=== PATIENT | female | born 1995 | race Caucasian/White ===

== ENCOUNTER 2016-05-11 12:37 | Emergency (ER) | payer OTHER ==
[~2016-05-11] VITALS: Ht 170.2 cm; Wt 95.3 kg
[~2016-05-11 12:37] MED LIST: PERMETHRIN60 GM TOP
[2016-05-11 13:14] VITALS: BP 128/84
--- NOTE | 2016-05-11 14:43 | ED SKIN/ALLERGY COMPLAINT ---
History of Present Illness General Chief Complaint: General Adult Stated Complaint: CHECKED FOR HEAD LICE Source: patient, old records Exam Limitations: no limitations Vital Signs & Intake/Output Vital Signs & Intake/Output Vital Signs Date Time Temp Pulse Resp B/P Pulse O2 O2 Flow FiO2 Ox Delivery Rate 05/11 1314 97.5 56 16 128/84 96 Room Air Allergies Coded Allergies: NO KNOWN ALLERGIES (10/17/11) Reconcile Medications Permethrin (Lice Treatment) 1 % LIQUID 1 FELICIA TOP ONCE PEDICULOSIS Permethrin 60 GM CREAM..G. 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 The patient states that today she was itching her scalp which has been very itchy since today. She states that her coworkers checked her hair and saw the lice in her hair is well and sent her here for evaluation. She denies any rashes to her skin she has not taken anything for her symptoms no history of similar symptoms in the past or no modifying factors or associated symptoms otherwise. (MARCELO CONWAY,ELIJAH) Past History Travel History Traveled to [place] past 21 day No Medical History Any Pertinent Medical History? 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 No (ELIJAH VILLEGAS) Review of Systems Review of Systems Constitutional: Reports: see HPI. All Other Systems: Reviewed and Negative Comments Review of systems: See HPI, All other systems negative. Constitutional, no chills no fever, no malaise HEENT: no sore throat no congestion, no ear pain Cardiovascular: No chest pain , no palpitation Skin, no jaundice no rashes, no change in skin Respiratory: No dyspnea no cough no sputum GI: No nausea no vomiting, no diarrhea : No dysuria Muscle skeletal: No joint pain, no joint swelling, Neurologic: No numbness no headache Psych: No stress Heme/endocrine: No bruising no bleeding Immunology: No lymphadenopathy (ELIJAH VILLEGAS) Physical Exam Physical Exam General Appearance: well developed/nourished, no apparent distress, alert, awake Comments: Well-developed well-nourished patient in no apparent distress. HEENT: Atraumatic, extraocular motion intact Neck: Supple, FROM Back: FROM Cardiovascular: Regular rate and rhythms no murmurs rubs Respiratory: No respiratory distress. Patient speaking in full complete sentences. Breath sounds clear to auscultation bilaterally: NO W/R/R Extremities: full range of motion Neuro: Alert and oriented x3 Skin: Warm & dry;No appreciable rash on exposed skin Psych: Mood affect normal, normal memory normal judgment. (ELIJAH VILLEGAS) Progress Differential Diagnosis: pediculosis scabies cellulitis tinea Plan of Care: Discussed the patient her physical exam findings prescription for permethrin provided advised close follow-up return anytime sooner with any concerns she feels comfortable plan. (ELIJAH VILLEGAS) Departure Departure Time of Disposition: 1501 Disposition: HOME OR SELF CARE Condition: Stable Clinical Impression Primary Impression: Pediculosis Referrals: PATIENT HAS NO PRIMARY CARE DR (PCP/Family) Additional Instructions: permetherin as directed. wash your clothes bed sheets and towels in hot water. follow up with your pmd with any concerns Departure Forms: Customer Survey General Discharge Information Prescriptions: Current Visit Scripts Permethrin (Lice Treatment) 1 FELICIA TOP ONCE #1 BOT (ELIJAH VILLEGAS) PA/ROOFING APPRENTICE Co-Sign Statement Statement: ED Attending supervision documentation- [] I saw and evaluated the patient. I have also reviewed all the pertinent lab results and diagnostic results. I agree with the findings and the plan of care as documented in the PA's/ROOFING APPRENTICE's documentation. [X] I have reviewed the ED Record and agree with the PA's/ROOFING APPRENTICE's documentation. [] Additions or exceptions (if any) to the PAs/ROOFING APPRENTICE's note and plan are summarized below: [] (DES TRUJILLO DO)
[2016-05-11] MEDS ORDERED: LICE TREATMENT59 ML TOP (15:03)
== END 2016-05-11 15:13 ==
LOC: ERH 12:37
DX: B85.0 Pediculosis due to Pediculus humanus capitis (principal)

== ENCOUNTER 2016-05-25 17:53 | Emergency (ER) | payer OTHER ==
[~2016-05-25] VITALS: Ht 170.2 cm; Wt 95.3 kg
[~2016-05-25 17:53] MED LIST changes: +LICE TREATMENT59 ML TOP
--- NOTE | 2016-05-25 20:28 | ED THROAT/DENTAL COMPLAINT ---
History of Present Illness General Chief Complaint: Sore Throat, Dental Pain Stated Complaint: SORE THROAT Vital Signs & Intake/Output Vital Signs & Intake/Output Vital Signs Date Time Temp Pulse Resp B/P Pulse O2 O2 Flow FiO2 Ox Delivery Rate 05/25 1807 97.8 88 20 138/78 98 Room Air Allergies Coded Allergies: NO KNOWN ALLERGIES (10/17/11) Reconcile Medications Permethrin (Lice Treatment) 1 % LIQUID 1 FELICIA TOP ONCE PEDICULOSIS Permethrin 60 GM CREAM..G. 1 FELICIA TOP ONCE HEAD LICE 1% PRIOR TO APPLICATION WASH HAIR WITH CONDITIONER FREE SHAMPOO RINSE WITH WATER AND TOWEL APPLIED A FISH AMOUNT OF CREAM RINSE TO SATURATE THE HAIR AND SCALP ESPECIALLY BEHIND THE EARS AND NAPE OF THE NECK Garrett hARE NO LONGER THAN 10 MINUTES RINSE OFF WITH WARM WATER REMOVE REMAINING NITS WITH A NIT COMB REPEAT IN 7 DAYS IF NO BETTER Triage Note: PT TO ED C/O SORE THROAT X 3 DAYS. 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
[2016-05-25] MEDS ORDERED: AMOXICILLIN500 M3 PO (20:40)
--- NOTE | 2016-05-25 20:41 | ED THROAT/DENTAL COMPLAINT ---
History of Present Illness General Chief Complaint: Sore Throat, Dental Pain Stated Complaint: SORE THROAT Source: patient Exam Limitations: no limitations Vital Signs & Intake/Output Vital Signs & Intake/Output Vital Signs Date Time Temp Pulse Resp B/P Pulse O2 O2 Flow FiO2 Ox Delivery Rate 05/25 2048 99.7 88 20 106/61 98 Room Air 05/25 1808 97.8 88 20 138/78 98 Room Air ED Intake and Output 05/26 0000 05/25 1200 Intake Total 240 Output Total Balance 240 Intake, Oral 240 Patient 210 lb Weight Allergies Coded Allergies: NO KNOWN ALLERGIES (05/25/16) Reconcile Medications Amoxicillin 500 MG TABLET 1 TAB PO TID strep Triage Note: PT TO ED C/O SORE THROAT X 3 DAYS. Triage Nurses Notes Reviewed? yes Onset: Abrupt Duration: day(s): (FEW), constant, continues in ED Timing: recent history Severity: moderate, severe No Modifying Factors: none : No Patient currently breastfeeds: No HPI: 20-year-old female comes into emergency room for further evaluation of sore throat is been going on for the past 3 days. Difficulty swallowing. Denies any runny nose congestion. Mild cough. Chills. Denies any other associated symptoms at this time. (JERRY HAAS) Past History Travel History Traveled to [place] past 21 day No Medical History Any Pertinent Medical History? 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 No (EJRRY HAAS) Review of Systems Review of Systems Constitutional: Reports: see HPI. EENTM: Reports: see HPI. Respiratory: Reports: no symptoms. Cardiovascular: Reports: no symptoms. GI: Reports: no symptoms. Genitourinary: Reports: no symptoms. Musculoskeletal: Reports: no symptoms. Skin: Reports: no symptoms. Neurological/Psychological: Reports: no symptoms. Hematologic/Endocrine: Reports: no symptoms. Immunologic/Allergic: Reports: no symptoms. All Other Systems: Reviewed and Negative (JERRY HAAS) Physical Exam Physical Exam General Appearance: well developed/nourished, no apparent distress, alert, awake Head: atraumatic, normal appearance Eyes: Bilateral: normal appearance, EOMI. Nose: normal inspection Mouth/Throat: PHARYNGEAL ERYTHEMA AND MILD SWELLING,NO EXUDATES, NO UVULAR DEVIATION, NO TRISMUS, Neck: normal inspection, lymphadenopathy (R), lymphadenopathy (L) Cardiovascular/Respiratory: no respiratory distress Back: normal inspection Neurologic/Psych: awake, alert, oriented x 3, normal gait Skin: intact, normal color Core Measures ACS in differential dx? No Severe Sepsis Present: No Septic Shock Present: No (JERRY HAAS) Progress Differential Diagnosis: aspirated tooth, carious tooth, epiglottitis, Ludwigs angina, meningitis, odontogenic abscess, gregoria-tonsillar abscess, pharyngeal for. body, stomatitis/gingivitis, strep pharyngitis, tooth fracture Plan of Care: Orders Procedure Date/time Status THROAT CULTURE W/QUICK STREP 05/25 1810 Complete Departure Departure Disposition: HOME OR SELF CARE Condition: Stable Clinical Impression Primary Impression: Strep pharyngitis Referrals: PATIENT HAS NO PRIMARY CARE DR (PCP/Family) Additional Instructions: Take amoxicillin as prescribed. Drink plenty of fluids. Return if any other concerns worsening symptoms. Motrin for pain. Please go over all results of today's visit with your primary care doctor. Contact your primary care doctor to let them know you were here in the emergency room. There may be nonspecific findings which may not be related to your visit today here in the emergency room but may require further evaluation and chronic monitoring by your primary care doctor. If you had a laceration today the chance of foreign body always remains. You should follow-up with your primary care doctor for recheck in 3-5 days for a wound check. If you had an x-ray done there is a chance that a fracture could have been missed on initial read and you should follow-up with your primary care doctor for repeat x-rays if symptoms persist. If your blood pressure was elevated here in the emergency room please have rechecked by her primary care doctor within the next 48 hours by your primary care doctor. If you were prescribed a narcotic here in the emergency room or any type of controlled substances you're not allowed to drive while taking this medication or operate any type of heavy machinery. Narcotics can make you feel lightheaded dizziness nausea and can cause constipation. You may need to shrimp picker a stool softener. Thank you for choosing [facility] emergency room. Please return to the emergency room immediately if you have any other concerns worsening of symptoms. Departure Forms: Customer Survey General Discharge Information Prescriptions: Current Visit Scripts Amoxicillin 1 TAB PO TID #30 TAB (NU CONWAY,JERRY) PA/SALOONKEEPER Co-Sign Statement Statement: ED Attending supervision documentation- [] I saw and evaluated the patient. I have also reviewed all the pertinent lab results and diagnostic results. I agree with the findings and the plan of care as documented in the PA's/SALOONKEEPER's documentation. [X] I have reviewed the ED Record and agree with the PA's/SALOONKEEPER's documentation. [] Additions or exceptions (if any) to the PAs/SALOONKEEPER's note and plan are summarized below: [] (RAYMOND HYDE,COLLEEN Herr)
[2016-05-25 20:49] VITALS: BP 106/61
== END 2016-05-25 20:56 ==
LOC: ERH 17:53
DX: J02.0 Streptococcal pharyngitis (principal); Z72.0 Tobacco use

== ENCOUNTER 2017-05-11 12:31 | Emergency (ER) | payer OTHER ==
[~2017-05-11] VITALS: Ht 170.2 cm; Wt 99.8 kg
[~2017-05-11 12:31] MED LIST changes: +AMOXICILLIN500 M3 PO
--- NOTE | 2017-05-11 15:01 | ED DYSPNEA/ASTHMA COMPLAINT ---
History of Present Illness General Chief Complaint: General Adult Stated Complaint: SOB +N Source: patient Exam Limitations: no limitations Vital Signs & Intake/Output Vital Signs & Intake/Output Vital Signs Date Time Temp Pulse Resp B/P B/P Pulse O2 O2 Flow FiO2 Mean Ox Delivery Rate 05/11 1612 98.5 85 19 131/81 99 Room Air 05/11 1234 97.8 73 20 129/80 97 Room Air Allergies Coded Allergies: NO KNOWN ALLERGIES (05/25/16) Reconcile Medications Albuterol Sulfate (Proair Hfa) 90 MCG HFA.AER.AD 2 PUF INH Q4-6 PRN PRN sob Metoclopramide HCl (Reglan) 10 MG TABLET 1 TAB PO 4 TIMES/DAY PRN headache/ nausea 30 minutes before meals and bedtime Triage Note: PT TO ED C/O SOB X THE LAST COUPLE DAYS. ALSO C/O NAUSEA, DIZZINESS, HEADACHE THE LAST 2 DAYS. TOOK MOTRIN 1 HOUR AGO WITH NO RELIEF. DENIES VOMITING, STATES DIARRHEA X 1 THIS AM. RA SATS 97%, NO OBVIOUS RESP DISTRESS NOTED. Triage Nurses Notes Reviewed? yes Onset: Gradual Duration: day(s): (3), changing over time, continues in ED Timing: single episode today Severity: mild, moderate Activities at Onset: none Prior Episodes/Possible Cause: no prior episodes Associated Symptoms: headache, shortness of breath, nausea LMP (ages 10-50): unknown : No Patient currently breastfeeds: No HPI: 21-year-old female who past medical history presents for evaluation of headache, nausea and shortness of breath. Patient states and is undergoing off but the past 3 or 4 days. She states that she has a history of headaches but has never had one last this long. The pain is located on the right side of her head towards the front and is described as pressure. There is no head trauma no neck pain no changes in vision. She reports associated nausea but no vomiting. No fevers. No changes in vision. She's been taking ibuprofen with minimal improvement. She also reports shortness of breath. The shortness of breath is only present on exertion such as walking upstairs and improves with rest. No chest pain no hemoptysis no lower extremity edema. No recent surgery or trauma no control or other estrogen no previous history of DVT. No history of asthma. Past History Travel History Traveled to [place] past 21 day No Medical History Any Pertinent Medical History? 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 No Review of Systems Review of Systems Constitutional: Reports: no symptoms. EENTM: Reports: no symptoms. Respiratory: Reports: see HPI, short of breath. Cardiovascular: Reports: no symptoms. GI: Reports: see HPI, nausea. Genitourinary: Reports: no symptoms. Musculoskeletal: Reports: no symptoms. Skin: Reports: no symptoms. Neurological/Psychological: Reports: headache. Hematologic/Endocrine: Reports: no symptoms. Immunologic/Allergic: Reports: no symptoms. All Other Systems: Reviewed and Negative Physical Exam Physical Exam General Appearance: well developed/nourished, no apparent distress, alert, awake , obese Head: atraumatic, normal appearance Eyes: Bilateral: normal appearance, PERRL, EOMI. Ears, Nose, Throat: normal pharynx, normal ENT inspection, hearing grossly normal Neck: normal inspection, supple, full range of motion Respiratory: normal breath sounds, chest non-tender, no respiratory distress, lungs clear Cardiovascular: regular rate/rhythm, normal peripheral pulses Peripheral Pulses: 2+ radial (R), 2+ radial (L) Gastrointestinal: normal bowel sounds, soft, non-tender, no organomegaly Extremities: normal inspection, normal capillary refill, normal range of motion, no edema Neurologic/Psych: no motor/sensory deficits, awake, alert, oriented x 3, normal gait Skin: intact, normal color, warm/dry Core Measures ACS in differential dx? No CVA/TIA Diagnosis No Sepsis Present: No Sepsis Focused Exam Completed? No Progress Differential Diagnosis: asthma, AMI, bronchitis, CHF, COPD, pulmonary embolism, pneumonia, pneumothorax, rib fracture Plan of Care: Orders Procedure Date/time Status RAPID VIRAL INFLUENZA A 05/11 1650 Complete URINE 05/11 1500 Complete URINALYSIS 05/11 1500 Complete TROPONIN LEVEL 05/11 1500 Complete COMPREHENSIVE METABOLIC PANEL 05/11 1500 Complete CBC WITHOUT DIFFERENTIAL 05/11 1500 Complete EKG 05/11 1500 Active Laboratory Tests 05/11/17 1517: Urinalysis LIGHT H, Urine Color YEL, Urine Clarity HAZY H, Urine pH 7.0, Ur Specific [place] 1.025, Urine Protein NEG, Urine Ketones NEG, Urine Nitrite NEG, Urine Bilirubin NEG, Urine Urobilinogen 0.2, Ur Leukocyte Esterase NEG, Ur Microscopic SEDIMENT EXAMINED, Urine WBC 3-5 H, Ur Epithelial Cells MOD H, Urine Mucus MANY H, Urine Hemoglobin NEG, Urine Glucose NEG, Urine Test NEGATIVE 05/11/17 1514: Anion Gap 16, Estimated GFR > 60, BUN/Creatinine Ratio 27.1 H, Glucose 90, Calcium 9.7, Total Bilirubin 0.4, AST 19, ALT 25, Alkaline Phosphatase 67, Troponin I < 0.01, Total Protein 7.6, Albumin 4.6, Globulin 3.0, Albumin/ Globulin Ratio 1.5, CBC w Diff NO MAN DIFF REQ, RBC 4.71, MCV 90.6, MCH 30.0, MCHC 33.1, RDW 12.2, MPV 8.9, Gran % 66.3, Lymphocytes % 23.0, Monocytes % 8.1, Eosinophils % 2.2, Basophils % 0.4, Absolute Granulocytes 6.5, Absolute Lymphocytes 2.2, Absolute Monocytes 0.8 H, Absolute Eosinophils 0.2, Absolute Basophils 0 Microbiology 05/11 1730 NASOPHARYN: Influenza Virus A & B Rapid Smear - COMP Patient seen and evaluated. She is perc negative. Chest x-ray is clear EKG is negative troponin negative. Lungs are clear to auscultation.no chest pain . All blood work is negative. Patient was medicated with Reglan and is feeling much better. She no longer has a headache or nausea. She will tolerate food and fluids here. Patient will be given a prescription for Reglan and pro-air inhaler. Advised to rest and plenty of fluids follow up with primary care doctor. Discussed return precautions in detail patient is nontoxic-appearing and agrees to plan. Diagnostic Imaging: Viewed by Me: Radiology Read. Discussed w/RAD: Radiology Read. CXR Impression: PATIENT: CHRIS VALDES PRESENT AGE: 21 PATIENT ACCOUNT NO: [id number] : 94 LOCATION: [facility] ORDERING PHYSICIAN: Tiburcio CONWAY SERVICE DATE: 05/11/17 EXAM TYPE: RAD - XRY-CHEST XRAY, TWO VIEWS EXAMINATION: XR CHEST CLINICAL INFORMATION: Cough, shortness of breath COMPARISON: None TECHNIQUE: 2 views of the chest were obtained. FINDINGS: No significant abnormality is noted involving the heart, lungs, mediastinum, bony thorax or soft tissues. IMPRESSION: Unremarkable examination. DICTATED BY: Augustin Cedillo MD DATE/TIME DICTATED:05/11/171651 HARDWARE TRAINER:MELY DATE/ TIME TRANSCRIBED:05/11/171651 CONFIDENTIAL, DO NOT COPY WITHOUT APPROPRIATE AUTHORIZATION. Initial ED EKG: normal sinus rhythm, no ST T wave changes Departure Departure Disposition: HOME OR SELF CARE Condition: Stable Clinical Impression Primary Impression: Headache Qualifiers: Headache type: unspecified Headache chronicity pattern: acute headache Intractability: not intractable Qualified Code: R51 - Headache Secondary Impressions: Shortness of breath Referrals: Patient Has No Primary Care Dr (PCP/Family) Departure Forms: Customer Survey General Discharge Information Prescriptions: Current Visit Scripts Metoclopramide HCl (Reglan) 1 TAB PO 4 TIMES/DAY PRN headache/nausea #20 TAB 30 minutes before meals and bedtime Albuterol Sulfate (Proair Hfa) 2 PUF INH Q4-6 PRN PRN sob #1 INHAL Critical Care Note Critical Care Note Critical Care Time: non-applicable ED Attending Observation Initial Observation Note: I have seen and personally examined CHRIS VALDES on 05/11/17 at 2034. I agree with the current emergency department documentation. The disposition (admission or discharge) is uncertain at this time, she needs a period of observation for the following reason(s): The ED Nurse caring for this patient has been personally informed as to what the patient is being observed for.
[2017-05-11 15:21] LABS: ABSOLUTE BASOPHIL COUNT 0 /CUMM (0.0-0.2); ABSOLUTE EOSINOPHIL COUNT 0.2 /CUMM (0.0-0.7); ABSOLUTE GRANULOCYTE CT 6.5 /CUMM (1.4-6.5); ABSOLUTE LYMPH COUNT 2.2 /CUMM (1.2-3.4); ABSOLUTE MONOCYTE COUNT 0.8 /CUMM (0.10-0.60); BASOPHIL % 0.4 % (0.0-2.0); EOSINOPHIL % 2.2 % (0-5); GRANULOCYTE % 66.3 % (42.2-75.2); HEMATOCRIT 42.7 % (37-47); MEAN CORPUSCULAR HGB CONC 33.1 G/DL (33.0-37.0); MEAN CORPUSCULAR VOLUME 90.6 FL (81.0-99.0); MEAN PLATELET VOLUME 8.9 FL (7.4-10.4); PLATELET COUNT 234 /CUMM (130-400); RBC DISTRIBUTION WIDTH 12.2 % (11.5-14.5); RED BLOOD CELL CT 4.71 /CUMM (4.20-5.40); WHITE BLOOD CELL COUNT 9.8 /CUMM (4.8-10.8)
[2017-05-11 16:12] VITALS: BP 131/81
--- NOTE | 2017-05-11 16:55 | RADIOLOGY REPORT ---
EXAMINATION: XR CHEST CLINICAL INFORMATION: Cough, shortness of breath COMPARISON: None TECHNIQUE: 2 views of the chest were obtained. FINDINGS: No significant abnormality is noted involving the heart, lungs, mediastinum, bony thorax or soft tissues. IMPRESSION: Unremarkable examination.
[2017-05-11] MEDS ORDERED: PROAIR HFA8.5 GM INH (17:55)
[2017-05-11] MEDS ORDERED: REGLAN10 M1 PO (17:55)
== END 2017-05-11 17:59 ==
LOC: ERH 12:31
PROVIDERS: Physician Assistant Medical
DX: R51 Headache (principal); R06.02 Shortness of breath; R11.0 Nausea
CPT/HCPCS: 71046; 81001; 81025; 87804; 87804-59; 93005; 93010

== ENCOUNTER 2017-10-11 18:15 | Emergency (ER) | payer SELFPAY ==
[~2017-10-11] VITALS: Ht 170.2 cm; Wt 108.9 kg
[~2017-10-11 18:15] MED LIST changes: +PROAIR HFA8.5 GM INH; +REGLAN10 M1 PO
[2017-10-11 20:48] LABS: ABSOLUTE BASOPHIL COUNT 0 /CUMM (0.0-0.2); ABSOLUTE EOSINOPHIL COUNT 0.2 /CUMM (0.0-0.7); ABSOLUTE GRANULOCYTE CT 6.6 /CUMM (1.4-6.5); ABSOLUTE LYMPH COUNT 2.1 /CUMM (1.2-3.4); BASOPHIL % 0.2 % (0.0-2.0); EOSINOPHIL % 2.5 % (0-5); GRANULOCYTE % 66.3 % (42.2-75.2); HEMATOCRIT 40.4 % (37-47); MEAN CORPUSCULAR HGB 31.1 PG (27.0-31.0); MEAN CORPUSCULAR HGB CONC 34.3 G/DL (33.0-37.0); MEAN CORPUSCULAR VOLUME 90.8 FL (81.0-99.0); MEAN PLATELET VOLUME 9.2 FL (7.4-10.4); PLATELET COUNT 218 /CUMM (130-400); RBC DISTRIBUTION WIDTH 12.7 % (11.5-14.5); RED BLOOD CELL CT 4.44 /CUMM (4.20-5.40)
[2017-10-11 21:40] VITALS: BP 128/70
--- NOTE | 2017-10-11 21:43 | ED GI/GU/ABDOMINAL COMPLAINT ---
History of Present Illness General Chief Complaint: Abdominal Pain/Flank Pain Stated Complaint: ABD PAIN, DIARRHEA X 5DAYS Source: patient Exam Limitations: no limitations Vital Signs & Intake/Output Vital Signs & Intake/Output Vital Signs Date Time Temp Pulse Resp B/P B/P Pulse O2 O2 Flow FiO2 Mean Ox Delivery Rate 10/110 98.7 66 18 128/70 98 Room Air 10/11 1819 98.1 62 18 124/74 97 Room Air ED Intake and Output 10/12 0000 10/11 1200 Intake Total Output Total Balance Patient 240 lb Weight Weight Reported by Patient Measurement Method Allergies Coded Allergies: NO KNOWN ALLERGIES (05/25/16) Reconcile Medications Albuterol Sulfate (Proair Hfa) 90 MCG HFA.AER.AD 2 PUF INH Q4-6 PRN PRN sob Metoclopramide HCl (Reglan) 10 MG TABLET 1 TAB PO 4 TIMES/DAY PRN headache/ nausea 30 minutes before meals and bedtime Omeprazole 40 MG CAPSULE.DR 1 CAP PO DAILY acid reflux Triage Note: PT STATES SHE HAS BEEN HAVING ABD PAIN SINCE WEDNESDAY. PT STATES SHE HAS HAD DIARRHEA SINCE WEDNESDAY ALSO. PT STATES SHE HAS NAUSEA ONLY WHEN THE STOMACH PAIN OCCURS. PT DENIES VOMITING. Triage Nurses Notes Reviewed? yes ? N Is pt currently ? No Onset: Abrupt Duration: day(s): Timing: recent history Quality/Severity: cramping, sharpness HPI: 21-year-old female comes into emergency room complaints of abdominal pain. Patient reports that the symptoms started this past . She reports that the pain is located around her belly button and above in her upper abdomen. Worse after eating. Denies any fever chills or vomiting. some intermittent loose stools. Denies any abdominal surgeries. He comes in for further evaluation. (Darrius Ocampo) Past History Travel History Traveled to [place] past 21 day No Medical History Any Pertinent Medical History? none Neurological: NONE EENT: NONE Cardiovascular: NONE Respiratory: NONE Gastrointestinal: NONE Hepatic: NONE Renal: NONE Musculoskeletal: NONE Psychiatric: NONE Endocrine: NONE Blood Disorders: NONE Cancer(s): NONE MANUSCRIPT EDITOR/Reproductive: NONE Surgical History Surgical History: nO ABDOMINAL SURGERIES Psychosocial History What is your primary language Omani Tobacco Use: Current Daily Use Daily Tobacco Use Amount/Type: => 5 Cigarettes daily ETOH Use: occasional use Illicit Drug Use: denies illicit drug use Family History Hx Contributory? No (Darrius Ocampo) Review of Systems Review of Systems Constitutional: Reports: no symptoms. EENTM: Reports: no symptoms. Respiratory: Reports: no symptoms. Cardiovascular: Reports: no symptoms. GI: Reports: see HPI. Genitourinary: Reports: no symptoms. Musculoskeletal: Reports: no symptoms. Skin: Reports: no symptoms. Neurological/Psychological: Reports: no symptoms. Hematologic/Endocrine: Reports: no symptoms. Immunologic/Allergic: Reports: no symptoms. All Other Systems: Reviewed and Negative (Darrius Ocampo) Physical Exam Physical Exam General Appearance: well developed/nourished, alert, awake Head: atraumatic Eyes: Bilateral: normal appearance, EOMI. Ears, Nose, Throat, Mouth: hearing grossly normal, moist mucous membrane Neck: normal inspection Respiratory: normal breath sounds, no respiratory distress Cardiovascular: regular rate/rhythm Gastrointestinal: soft, tenderness (MID ABDOMEN), NO GUARDING, NO REBOUND TENDERNESS Back: normal inspection Extremities: normal range of motion Neurologic/Psych: awake, alert, oriented x 3 Skin: intact, normal color Core Measures ACS in differential dx? No Sepsis Present: No Sepsis Focused Exam Completed? No (Darrius Ocampo) Progress Differential Diagnosis: biliary colic, bowel obstruction, cholecystitis, diverticulitis, gastritis, hernia, ischemic bowel, inflamm bowel dis, peptic ulcer, PUD/GERD, perforated viscous, SBO Plan of Care: Orders Procedure Date/time Status URINE 10/12 1919 Complete URINALYSIS 10/12 1919 Complete LIPASE 10/12 1919 Complete HEPATIC FUNCTION PANEL 10/12 1919 Complete CBC WITHOUT DIFFERENTIAL 10/12 1919 Complete BASIC METABOLIC PANEL 10/12 1919 Complete Laboratory Tests 10/11/172036: Urinalysis LIGHT H, Urine Color YEL, Urine Clarity HAZY H, Urine pH 6.0, Ur Specific Gardner >= 1.030, Urine Protein NEG, Urine Ketones NEG, Urine Nitrite NEG, Urine Bilirubin NEG, Urine Urobilinogen 0.2, Ur Leukocyte Esterase NEG, Ur Microscopic SEDIMENT EXAMINED, Urine WBC 3-5 H, Ur Epithelial Cells MANY H, Urine Bacteria MANY H, Urine Mucus MANY H, Urine Hemoglobin NEG, Urine Glucose NEG, Urine Test NEGATIVE 10/11/172031: Anion Gap 10, Estimated GFR > 60, BUN/Creatinine Ratio 12.5, Glucose 83, Calcium 9.4, Total Bilirubin 0.5, Direct Bilirubin 0.1, AST 23, ALT 30, Alkaline Phosphatase 73, Total Protein 7.1, Albumin 4.2, Lipase 43, CBC w Diff NO MAN DIFF REQ, RBC 4.44, MCV 90.8, MCH 31.1 H, MCHC 34.3, RDW 12.7, MPV 9.2, Gran % 66.3, Lymphocytes % 21.4, Monocytes % 9.6 H, Eosinophils % 2.5, Basophils % 0.2 , Absolute Granulocytes 6.6 H, Absolute Lymphocytes 2.1, Absolute Monocytes 1.0 H, Absolute Eosinophils 0.2, Absolute Basophils 0 Diagnostic Imaging: Viewed by Me: CT Scan. Discussed w/RAD: CT Scan. Radiology Impression: PATIENT: CHRIS VALDES PRESENT AGE: 21 PATIENT ACCOUNT NO: [id number] : 94 LOCATION: ER ORDERING PHYSICIAN: Darrius CONWAY SERVICE DATE: 10/11/17 EXAM TYPE : CAT - CT ABD & PELVIS W/O IV CONTRAS EXAMINATION: CT ABDOMEN AND PELVIS WITHOUT CONTRAST CLINICAL INFORMATION: Epigastric pain COMPARISON: None TECHNIQUE: Multidetector volumetric imaging was performed from the superior aspect of the liver through the pubic symphysis. Sagittal and coronal reformatted images were obtained on the technologist's workstation. DLP: 827 mGy -cm FINDINGS: LUNG BASES: The visualized lung bases are unremarkable. LIVER, GALLBLADDER, AND BILIARY TREE: The liver is normal in size, shape, and attenuation. No focal hepatic lesion or biliary ductal dilatation is present. Subtle hyperattenuation within the gallbladder which may represent biliary sludge. No pericholecystic fluid or inflammatory stranding. PANCREAS: Unremarkable. SPLEEN: Unremarkable. ADRENAL GLANDS: Unremarkable. KIDNEYS AND URETERS: The kidneys are normal in size, shape, and attenuation. No hydronephrosis, hydroureter, or calculi seen. No perinephric stranding. BLADDER: Unremarkable. GASTROINTESTINAL TRACT: The small and large bowel are unremarkable. The appendix is unremarkable. ABDOMINAL WALL: No significant hernia is appreciated. LYMPH NODES: Normal. VASCULAR: Unremarkable. PELVIC VISCERA: Unremarkable. OSSEOUS STRUCTURES: Unremarkable. IMPRESSION: Probable sludge within the gallbladder. Otherwise unremarkable study. DICTATED BY: Doni Dyer MD DATE/TIME DICTATED:10/11/172156 STAFF ANESTHESIOLOGIST: MELY DATE/TIME TRANSCRIBED:10/11/172156 CONFIDENTIAL, DO NOT COPY WITHOUT APPROPRIATE AUTHORIZATION. <Electronically signed in Other Vendor System> SIGNED BY: Doni Dyer MD 10/11/17 [id number] Initial ED EKG: none Comments: 10/11/2017 11:37:03 PM Patient clinically looks well. In no apparent distress. Nontoxic-appearing. No acute abdomen. Discussed patient with follow-up for outpatient ultrasound. Return if any other concerns. Understands and agrees plan of care. Started on a PPI case of atypical peptic ulcer presentation. (Hakan CONWAY,Darrius) Departure Departure Disposition: HOME OR SELF CARE Condition: Stable Clinical Impression Primary Impression: Abdominal pain Referrals: Patient Has No Primary Care Dr (PCP/Family) Jeanine HYDE,Ishaan Banegas Additional Instructions: Take omeprazole prescribed. Return if any concerns worsening symptoms. Follow-up with podiatric medicine professor for outpatient ultrasound of gallbladder. Decrease fatty foods in diet Please go over all results of today's visit with your primary care doctor. Contact your primary care doctor to let them know you were here in the emergency room. There may be nonspecific findings which may not be related to your visit today here in the emergency room but may require further evaluation and chronic monitoring by your primary care doctor. If you had a laceration today the chance of foreign body always remains. You should follow-up with your primary care doctor for recheck in 3-5 days for a wound check. If you had an x-ray done there is a chance that a fracture could have been missed on initial read and you should follow-up with your primary care doctor for repeat x-rays if symptoms persist. If your blood pressure was elevated here in the emergency room please have rechecked by [facility] primary care doctor within the next 48. If you were prescribed a narcotic here in the emergency room or any type of controlled substances you're not allowed to drive while taking this medication or operate any type of heavy machinery. Narcotics can make you feel lightheaded dizziness nausea and can cause constipation. You may need to medicinal plant picker a stool softener. Thank you for choosing [facility] emergency room. Please return to the emergency room immediately if you have any other concerns worsening of symptoms. Departure Forms: Customer Survey General Discharge Information Prescriptions: Current Visit Scripts Omeprazole 1 CAP PO DAILY #30 CAP (Darrius Ocampo) PA/RESTAURANT AND BAR MANAGER Co-Sign Statement Statement: ED Attending supervision documentation- [] I saw and evaluated the patient. I have also reviewed all the pertinent lab results and diagnostic results. I agree with the findings and the plan of care as documented in the PA's/RESTAURANT AND BAR MANAGER's documentation. [X] I have reviewed the ED Record and agree with the PA's/RESTAURANT AND BAR MANAGER's documentation. [] Additions or exceptions (if any) to the PAs/RESTAURANT AND BAR MANAGER's note and plan are summarized below: [] (Bonifacio HYDE,Kristian Herr)
--- NOTE | 2017-10-11 22:11 | CT SCAN REPORT ---
EXAMINATION: CT ABDOMEN AND PELVIS WITHOUT CONTRAST CLINICAL INFORMATION: Epigastric pain COMPARISON: None TECHNIQUE: Multidetector volumetric imaging was performed from the superior aspect of the liver through the pubic symphysis. Sagittal and coronal reformatted images were obtained on the technologist's workstation. DLP: 827 mGy-cm FINDINGS: LUNG BASES: The visualized lung bases are unremarkable. LIVER, GALLBLADDER, AND BILIARY TREE: The liver is normal in size, shape, and attenuation. No focal hepatic lesion or biliary ductal dilatation is present. Subtle hyperattenuation within the gallbladder which may represent biliary sludge. No pericholecystic fluid or inflammatory stranding. PANCREAS: Unremarkable. SPLEEN: Unremarkable. ADRENAL GLANDS: Unremarkable. KIDNEYS AND URETERS: The kidneys are normal in size, shape, and attenuation. No hydronephrosis, hydroureter, or calculi seen. No perinephric stranding. BLADDER: Unremarkable. GASTROINTESTINAL TRACT: The small and large bowel are unremarkable. The appendix is unremarkable. ABDOMINAL WALL: No significant hernia is appreciated. LYMPH NODES: Normal. VASCULAR: Unremarkable. PELVIC VISCERA: Unremarkable. OSSEOUS STRUCTURES: Unremarkable. IMPRESSION: Probable sludge within the gallbladder. Otherwise unremarkable study.
[2017-10-11] MEDS ORDERED: OMEPRAZOLE40 M1 PO (22:16)
== END 2017-10-11 22:31 ==
LOC: ERH 18:15
PROVIDERS: Physician Assistant
DX: R10.33 Periumbilical pain (principal)
CPT/HCPCS: 74176; 81001; 81025